=== PATIENT | female | born 1985 | race Caucasian/White ===

== ENCOUNTER 2020-02-19 11:25 | Inpatient (IN) | payer MEDICAID ==
[2020-02-19] MEDS ORDERED: hydrALAZINE 20 MG/ML VIAL SLOW IVP PRN ×3 (11:44→18:07)
[2020-02-19] MEDS ORDERED: Promethazine HCl 25 MG/ML VIAL IM PRN ×3 (11:44→15:26)
[2020-02-19] MEDS ORDERED: Ondansetron PF 4 MG/2 ML Vial IVP PRN ×4 (11:44→18:07)
[2020-02-19 11:49] VITALS: BMI 29.7
--- NOTE | 2020-02-19 12:13 | PDOC.FPROB ---
FMR OB H&P: Medications - Current Allergies/Adverse Reactions: Allergies Allergy/AdvReac Type Severity Reaction Status Date / Time hydrocodone Allergy Severe Verified 01/10/20 10:48 FMR OB H&P: Vital Signs - Maternal Vital signs: Vital Signs - First Documented Temp 98.7 F 02/19/20 11:36 FMR OB H&P: A/P - Problem List (1) Current Visit: Yes Status: Acute (2) History of - section Current Visit: No Status: Active Code(s): Z98.89 - OTHER SPECIFIED POSTPROCEDURAL STATES * DO NOT USE * Discussion: Date/Time: 02/19/20 1212 PCP: No Care HPI: This is a at unknown gestational age. Patient comes in today because she thinks she is overdue. Her last LMP was , so she thinks she needs a . With her first infant she had a primary section for Macrosomia and she plans for repeat section. Her first infant has weavers syndrome. She did not have any care because she said at first she did not have insurance, then she could not find anyone in her town who would accept her insurance. She affirms movement, denies cxns, ROM, bleeding. Denies DAVIS, visual changes, SOB, or swelling. 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, denies STIs PMH: denies dm, htn, asthma or any other significant PMH PSH: cholecystectomy, c/s x1 Meds: tylenol All: hydrocodone Soc Hx: former smoker, denies alcohol/drugs Fam Hx: no downs/congenital heart defects, 1st child with weavers syndrome REVIEW OF SYSTEMS: Gen: no fever, chills, or sweats Neuro: no numbness/tingling, no weakness, denies headache ENT: denies congestion Eyes: no visual changes Resp: denies cough, no production, no SOB, no wheeze Card: denies chest pain, no palpitations GI: denies nausea, vomiting, diarrhea : no dysuria, no hematuria Skin: no rash, no erythema Psych: denies hx anxiety/depression Vitals: T: 98.4 R: 18 BP: 123/66 P:81 at: 98% on RA PHYSICAL EXAMINATION: General: NAD, alert and oriented x3 HEENT: EOMI, normal sclera, poor dentition Neck: Supple. Full ROM. Heart/Cardiovascular System: RRR, Cap refill < 3 seconds, no rub, no murmur Lungs/Respiratory System: clear to auscultation bilaterally. No increased work of breathing. Room air. Abdomen/Gastro-Intestinal System: no abdominal tenderness, normal bowel sounds, Gravid Extremities: Warm extremities. No cyanosis or edema. Neuro: No gross deficits appreciated Psychiatry: Awake, Alert and cooperative with exam Skin: no lesions, no rashes Musculoskeletal: Full ROM A/P: This is a 34 yo here for no care evaluation FHT: 120 baseline, mod variability, no decels, accels present [place]: intermittent contractions # No care - IOB labs, GBS, A1c, UDS, full sono - Post dates by LMP - Will eval baby size and consider delivery - Discussed clinic as option for future care
[2020-02-19 12:27] LABS: Bacteria/HPF None Seen HPF (None Seen); Bilirubin Negative (Negative); Blood, Urine Negative (Negative); Clarity Clear (Clear); Glucose, Urine (Dipstick) Normal (Negative); Leukocyte Negative Leu/uL (Negative); Nitrite Negative (Negative); Protein, Urine (Dipstick) 10 mg/dL (Neg-Trace); RBC/HPF 0-3 HPF (0-3); Urobilinogen Normal mg/dL (Less than 2); WBC/HPF 0-3 HPF (0-3)
[2020-02-19 12:39] LABS: Amphetamine Not Detected (NotDetected); Cocaine Metabolite Screen Not Detected (NotDetected); Medtox Reader # READER 4; Methamphetamine Not Detected (NotDetected); Opiate Screen Not Detected (NotDetected); Phencyclidine (PCP) Not Detected (NotDetected); THC/Cannabinoid Screen Detected (NotDetected)
[2020-02-19 12:40] LABS: Barbiturates Screen Not Detected (NotDetected); Benzodiazepine Screen Not Detected (NotDetected); Medtox Control Line Valid? VALID (VALID); Methadone Not Detected (NotDetected); Oxycodone Screen Not Detected (NotDetected); Tricyclic Screen Not Detected (NotDetected)
--- NOTE | 2020-02-19 12:43 | PDOC.EVN ---
Event Note - Event Note Event Note: PREOP CS note 1241 At bedside for departmental sono, EFW at 4000grams. Severe oligo on sono (les than 2cm). Concern for late term or post-term gestation. I have discussed with charge master coordinator. We will notify anesthesia of CS later today or tomorrow AM if not possible today. If has to wait for am, needs continous monitoring. I will recommend CS today. I have discussed these findings with the patient and she agrees with plan.
[2020-02-19 12:44] LABS: Hemoglobin 10.7 g/dL (12.0-16.0); Mean Corpuscular HGB CONC 33.5 g/dL (32.0-36.0); Mean Corpuscular Hemoglobin 28.5 pg (27.0-31.0); Mean Platelet Volume 6.9 fL (7.4-10.4); Platelet Count 271 thou/uL (130-400); RBC Distribution Width 14.6 % (11.5-14.5); Red Blood Cell (RBC) Count 3.76 mill/uL (4.20-5.40); White Blood Cell (WBC) Count 9.7 thou/uL (4.8-10.8)
[2020-02-19] MEDS ORDERED: Bicitra 30 ML UDCUP PO SCH (12:45)
[2020-02-19] MEDS ORDERED: Lactated Ringer's 1,000 ML IV SCH (12:45)
[2020-02-19] MEDS ORDERED: CEFAZOLIN 2 GM in Premix Bag 1 BAG IVPB SCH (12:45)
--- NOTE | 2020-02-19 12:49 | HP ---
TIME: 2027. LOCATION: [facility], bed #6. CHIEF COMPLAINT: No care and "wants a ." HISTORY OF PRESENT ILLNESS: In brief, this is a 34-year-old, G2, P1, with no care, and no idea of her estimated due date, who arrived now for evaluation. She has good movement. She has a history of one previous for macrosomia. She desires a repeat . Her last child was born with Barton syndrome. REVIEW OF SYSTEMS: No vaginal bleeding. No leakage of fluid. Good movement. No fevers. No cough. No sick contacts. PAST SURGICAL HISTORY: Includes a . ALLERGIES: HYDROCODONE. SOCIAL HISTORY: The patient denies x3. PHYSICAL EXAMINATION: VITAL SIGNS: Stable. She is afebrile. She is normotensive. GENERAL: She is in no acute distress. CERVICAL: Currently deferred pending ultrasound for more information on the gestational age. ASSESSMENT: This is a G2, P1, with a previous with no gestational age criteria, here for evaluation. PLAN: 1. All OB labs including GC and chlamydia and GBS have been ordered. 2. We will get an OB ultrasound to give us more information as to a possible gestational age and fluid check. 3. We have also ordered a urine culture and urine tox screen per protocol. 4. We have ordered a complete ultrasound to be done. Job ID: [id number]
[2020-02-19 12:51] LABS: Hemoglobin A1c 4.9 % (4.0-6.0)
[2020-02-19 13:24] LABS: HBSAB Concentration 0.31 mIU/mL; HIV (1/2) Antibody/Antigen Non-Reactive (NonReactive); HIV 1/2 INDEX 0.12 S/CO (<1.00); Hep B Surf AB Non-Reactive (NonReactive)
[2020-02-19 13:30] LABS: Syphilis Antibody Nonreactive (Nonreactive); Syphilis Antibody Index 0.03 S/CO (<1.00 Non-Reactive)
--- NOTE | 2020-02-19 13:32 | PDOC.EVN ---
Event Note - Event Note Event Note: TOX screen pos for cannabinoids
--- NOTE | 2020-02-19 13:47 | PDOC.EVN ---
Event Note - Event Note Event Note: Hep C screen ordered per [facility]
--- NOTE | 2020-02-19 13:50 | ULT ---
LIMITED OBSTETRICAL ULTRASOUND: 02/19/20 INDICATION: Evaluate growth, position and placenta. FINDINGS: No comparisons are available. There is an intrauterine gestation in vertex presentation. Cardiac activity is noted at 130 beats per minute. The placenta is posterior and slightly fundal. The fetus is vertex in presentation. OTILIO is d iminished at 1.3 cm. The biparietal diameter measures 10.07 cm giving an estimated gestational age of 41 weeks, 3 days. The abdominal circumference measures 35.51 cm giving an estimated gestational age of 39 weeks, 3 days . The femoral length measures 7.84 cm giving an estimated gestational age of 40 weeks, 1 day. Estimated weight is 4104 grams +/- 607 grams (9 lb. 1 oz. +/- 21 oz). Average gestational age by ultrasound is 40 weeks, 3 days. Estimated due date 02/17/20. IMPRESSION: 1. Single live intrauterine gestational with size and dates as above. 2. Oligohydramnios. POS: [facility]
[2020-02-19 14:38] LABS: Hep C IgG Ab Non-Reactive (NonReactive); Hep C Index 0.08 S/CO (0-0.79)
[2020-02-19] MEDS ORDERED: MORPHINE 5 MG/10 ML PF VIAL ONE (14:57)
[2020-02-19] MEDS ORDERED: Ketorolac Tromethamine 30 MG/ML VIAL ONE (14:57)
[2020-02-19] MEDS ORDERED: Oxytocin 10 UNITS/ML VIAL ONE (14:57)
[2020-02-19] MEDS ORDERED: Ondansetron PF 4 MG/2 ML Vial ONE (14:57)
[2020-02-19] MEDS ORDERED: Promethazine HCl 25 MG SUPP PR PRN (15:26)
[2020-02-19] MEDS ORDERED: Naloxone HCl 0.4 mg/ml Vial IVP PRN ×2 (15:26)
[2020-02-19] MEDS ORDERED: diphenhydrAMINE 50 MG/ML VIAL IVP PRN (15:26)
[2020-02-19] MEDS ORDERED: Naloxone HCl 0.4 mg/ml Vial IV PRN (15:26)
[2020-02-19] MEDS ORDERED: Communication Order-Pharmacy FS SCH (15:30)
[2020-02-19 15:45] LABS: HBSAg Index 0.19 S/CO (0-0.99); Hep B Surf Ag Non-Reactive S/CO (NonReactive)
[2020-02-19 16:04] LABS: Actual Bicarbonate (HCO3a) 29.7 mEq/L (22-28); Base Excess (BEa) 0.9 mEq/L (-2.0 to +3.0)
[2020-02-19] MEDS ORDERED: Ondansetron HCl/PF 4 MG/2 ML Vial IVP PRN (16:04)
[2020-02-19 16:05] LABS: Actual Bicarbonate (HCO3v) 28 mEq/L (22-28); Base Excess -0.4 mEq/L (-2.0 to +3.0); pH (Cord, venous) 7.29 (7.32-7.43)
--- NOTE | 2020-02-19 16:06 | PDOC.EVN ---
Event Note - Event Note Event Note: OBGYN Faculty CS note: Present and participated with repeat LTCS under [place] CS. Dominick Mccray as first surgeon/ Dr Dorado assist myself as second assist and as staff attending. I assited with fundal pressure for delivery and I closed the patient's right side of fascia half. Baby male vigorous with apgars 8/9. Appears post term as skin cracking ojn feet. No mec. Sacat clear AF noted. No complications. EBL about 600ml (QBL pending) Skin sutured Please see full op note
--- NOTE | 2020-02-19 16:59 | PDOC.OPDEL ---
OB Operative/Delivery Note - Additional Findings/Plan Compilations/Other Findings: Procedure Note Date of Procedure: 02/19/20 Resident Surgeons: Chloe Mccray, David Dorado Attending Surgeon: Dr. Thomas Austin Procedure: Repeat low transverse caesarean section Preoperative Diagnosis: 1) No Care 2) Oligohydramnios 3) Term Postoperative Diagnosis: 1) Same Anesthesia: spinal Indications: 34 year old presented at 40.3 wks by 40.3 wks US for initial visit. US showed 40.3 wk infant, oligohydramnios. Patient had a prior section for macrosomia and desired repeat . Procedure in Detail: After risks, benefits, and alternatives were explained to the patient, she gave informed consent. Pre-operative antibiotics included ancef. The patient was taken to the operating room and spinal anesthesia was placed. She was placed in the supine position with a left tilt and prepped and draped in usual sterile fashion. A Pfannenstiel incision was made with a scalpel and carried down to the level of the fascia which was sharply nicked. The fascial cut was extended bilaterally with Herzog scissors. The inferior and superior edges of the cut fascial edges were elevated with Abram clamps and the underlying rectus muscles were sharply and bluntly dissected free. The recti were divided bluntly. The peritoneum was retracted manually. An Gaurang O- ring was placed. A low transverse score was made with the scalpel and the uterus was entered in the midline with the scalpel. Clear fluid was seen. The hysterotomy was extended manually. The was noted to be vertex and was easily delivered by fundal pressure. Mouth and nares were bulb suctioned. Cord clamped and cut and grossly normal male was handed to waiting nurse. Cord blood and gas was obtained. Placenta was manually extracted, found to be intact with 3 vessel cord and discarded. The uterus was externalized and the endometrium was curetted with a dry lap. The hysterotomy was closed with a running locking 0-Vicryl in the usual fashion. Small oozing was attended to with bovie, following this hemostasis was appreciated. Uterus was then internalized and the hysterotomy was again noted to be hemostatic. The rectus was evaluated for bleeders, which were attended to with bovie, following this hemostasis was noted. The fascia was closed with a running non-locking 0-PDS suture. The subcutaneous tissue was irrigated and there were bleeders were attended to with bovie. The subcutaneous layer was approximated with 3-0 chromic in a running fashion. The skin was approximated with 1-0 monocryl on a tavon needle and a pressure dressing was placed. All counts were correct. The patient tolerated the procedure well and was taken to the recovery room in stable condition. QBL: 657ml Complications: None Specimens: Cord blood sent to lab for blood type. Cord gas sent. Findings: Grossly normal male . Grossly normal placenta with 3 vessel cord discarded. Drains: Chávez to gravity draining clear urine
[2020-02-19] MEDS ORDERED: Acetaminophen 650 MG Suppository PR SCH (18:00)
[2020-02-19] MEDS ORDERED: Simethicone Chewable 80 MG TAB PO PRN (18:07)
[2020-02-19] MEDS ORDERED: Lanolin Ointment 7 GM TUBE TOP PRN (18:07)
[2020-02-19] MEDS ORDERED: Acetaminophen 325 MG TAB PO PRN (18:07)
[2020-02-19] MEDS ORDERED: Promethazine HCl 25 MG/ML VIAL ONE (18:31)
[2020-02-19] MEDS: Ketorolac Tromethamine 30 MG/ML VIAL IVP PRN (20:21)
[2020-02-19] MEDS ORDERED: NS / Oxytocin 40 units/1000ml 1,000 ML IV SCH (23:59)
[2020-02-20] MEDS: Ferrous Sulfate 325 MG TAB PO SCH ×3 (04:09→21:49)
[2020-02-20] MEDS: Docusate Calcium (SURFAK) 240 MG CAP PO SCH ×3 (04:09→21:49)
[2020-02-20] MEDS: Ketorolac Tromethamine 30 MG/ML VIAL IVP PRN ×2 (05:07→12:09)
[2020-02-20 07:00] LABS: Hemoglobin 8.4 g/dL (12.0-16.0); Mean Corpuscular HGB CONC 32.5 g/dL (32.0-36.0); Mean Corpuscular Hemoglobin 28.5 pg (27.0-31.0); Mean Corpuscular Volume 87.6 fL (78.0-98.0); Mean Platelet Volume 7.1 fL (7.4-10.4); Platelet Count 223 thou/uL (130-400); RBC Distribution Width 14.7 % (11.5-14.5); Red Blood Cell (RBC) Count 2.96 mill/uL (4.20-5.40)
[2020-02-20] MEDS: Lactated Ringer's 1,000 ML IV SCH ×3 (07:00→17:40)
--- NOTE | 2020-02-20 07:13 | PDOC.PP ---
Post Progress Note Post Day #: 1 Subjective: PP day 1. Patient states she is feeling well overall, minimal pain, well controlled with tramadol. Tolerating PO w/o N/V. States bleeding about like a heavy menses. Catheter still in place, has not tried urinating as of yet. PO intake tolerated: yes Flatus: no Ambulation: no Vital Signs (12 hours) Temp Pulse Resp BP Pulse Ox 02/20/20 04:44 98.8 F 79 18 106/53 L 98 02/20/20 00:45 98.1 F 77 18 95/52 L 97 02/19/20 21:09 98.4 F 77 18 124/60 98 02/19/20 20:01 98.4 F 75 18 105/57 L 98 Weight Weight 86.183 kg - Physical Examination General: NAD Cardiovascular: no m/r/g, RRR Respiratory: clear to auscultation bilaterally, non-labored breathing Abdominal: + bowel sounds, appropriately TTP Fundus firm & at: 1 cm below umbilicus Extremities: negative homans (B) Skin: CS incision dry & intact, no rash Neurological: no gross focal deficits Psychiatric: A&Ox3, normal affect Result Diagrams: 02/20/20 06:00 Additional Labs: Post Labs Blood Type A POSITIVE 02/19/20 12:34 Hep Bs Antigen Non-Reactive S/CO (NonReactive) 02/19/20 12:34 (1) Status: Acute (2) History of - section Code(s): Z98.89 - OTHER SPECIFIED POSTPROCEDURAL STATES * DO NOT USE * Status : Inactive (3) delivery delivered Code(s): O82 - ENCOUNTER FOR DELIVERY WITHOUT INDICATION Status: Acute (4) Poor patient attendance of care Code(s): O09.30 - SUPRVSN OF PREG W INSUFFICIENT ANTENAT CARE, UNSP TRIMESTER Status: Acute - Assessment/Plan PP day 1, delivered at 40-42 wks. - continue pain control - encouraged ambulation - hgb 8.4, asymptomatic, cont PO iron, recheck H/H in AM - advance diet this AM
--- NOTE | 2020-02-20 07:30 | PDOC.PP ---
Post Progress Note Post Day #: 1 Subjective: Doing well PO intake tolerated: yes Flatus: yes Ambulation: yes Vital Signs (12 hours) Temp Pulse Resp BP Pulse Ox 02/20/20 04:44 98.8 F 79 18 106/53 L 98 02/20/20 00:45 98.1 F 77 18 95/52 L 97 02/19/20 21:09 98.4 F 77 18 124/60 98 02/19/20 20:01 98.4 F 75 18 105/57 L 98 Weight Weight 190 lb - Physical Examination General: NAD Cardiovascular: no m/r/g Respiratory: clear to auscultation bilaterally Abdominal: + bowel sounds, lochia, no distention, appropriately TTP Extremities: negative homans (B) Neurological: no gross focal deficits Psychiatric: A&Ox3, normal affect Result Diagrams: 02/20/20 06:00 Additional Labs: Post Labs Blood Type A POSITIVE 02/19/20 12:34 Hep Bs Antigen Non-Reactive S/CO (NonReactive) 02/19/20 12:34 (1) delivery delivered Code(s): O82 - ENCOUNTER FOR DELIVERY WITHOUT INDICATION Status: Acute - Assessment/Plan POD 1...routine PP care for now. Cannabioids noted on admit urine screen. Patient stable and well this AM.
[2020-02-20] MEDS: Prenatal Vitamin 1 TAB PO SCH (08:29)
[2020-02-20] MEDS: traMADol HCl 50 MG TAB PO PRN ×2 (08:29→17:38)
[2020-02-20] MEDS ORDERED: Adacel (T-DAP) 0.5 ML SYRINGE IM ONE (09:00)
[2020-02-20] MEDS: Ibuprofen 800 MG TAB PO SCH (21:49)
[2020-02-21] MEDS: Ibuprofen 800 MG TAB PO SCH ×2 (05:46→13:49)
[2020-02-21 06:04] LABS: Hemoglobin 8.2 g/dL (12.0-16.0)
[2020-02-21] MEDS: Prenatal Vitamin 1 TAB PO SCH (07:41)
[2020-02-21] MEDS: Ferrous Sulfate 325 MG TAB PO SCH (07:41)
[2020-02-21] MEDS: Docusate Calcium (SURFAK) 240 MG CAP PO SCH (07:41)
[2020-02-21] MEDS: traMADol HCl 50 MG TAB PO PRN (07:42)
[2020-02-21] MEDS: Lactated Ringer's 1,000 ML IV SCH ×2 (07:46→10:45)
--- NOTE | 2020-02-21 08:21 | PDOC.PP ---
Post Progress Note Post Day #: 2 Subjective: Mom states she is feeling well and looking forward to going home. Pain well controlled. Tolerating PO. Has had a BM w/o difficulty. PO intake tolerated: yes Flatus: yes Ambulation: yes Vital Signs (12 hours) Temp Pulse Resp BP Pulse Ox 02/21/20 07:49 98.3 F 82 16 123/60 97 02/21/20 05:43 98.1 F 88 18 114/55 L 97 02/21/20 00:22 98.4 F 87 20 105/54 L 98 Weight Weight 86.183 kg - Physical Examination General: NAD Cardiovascular: no m/r/g, RRR Respiratory: clear to auscultation bilaterally Abdominal: + bowel sounds, appropriately TTP Extremities: negative homans (B) Skin: no rash Neurological: no gross focal deficits Psychiatric: A&Ox3, normal affect Result Diagrams: 02/21/20 05:32 Additional Labs: Post Labs Blood Type A POSITIVE 02/19/20 12:34 Hep Bs Antigen Non-Reactive S/CO (NonReactive) 02/19/20 12:34 Rubella IgG Antibody 4.05 index (Immune >0.99) 02/19/20 12:34 (1) Status: Acute (2) History of - section Code(s): Z98.89 - OTHER SPECIFIED POSTPROCEDURAL STATES * DO NOT USE * Status : Inactive (3) delivery delivered Code(s): O82 - ENCOUNTER FOR DELIVERY WITHOUT INDICATION Status: Acute (4) Poor patient attendance of care Code(s): O09.30 - SUPRVSN OF PREG W INSUFFICIENT ANTENAT CARE, UNSP TRIMESTER Status: Acute - Assessment/Plan PP day 2, delivered at 40-42 wks. - pain well controlled - hgb 8.4-> 8.2 , asymptomatic, cont PO iron - follow up at [facility] in 2 weeks
[2020-02-21 11:49] VITALS: BP 130/67; TEMP 98.4
[2020-02-21 21:47] LABS: Chlamydia by PCR Not Detected (NotDetected); GC by PCR Not Detected (NotDetected)
== END 2020-02-21 15:07 | disposition home or self-care (01) | DRG 787 ==
LOC: L&D 11:25 → 3SE 19:00
PROVIDERS: ADMIT Obstetrics & Gynecology; ATTEND Obstetrics & Gynecology
PROC: 10D00Z1 Extraction of Products of Conception, Low, Open Approach (ICD-10-PCS; principal; 2020-02-19)
DX: O34.211 Maternal care for low transverse scar from previous cesarean delivery (principal); O41.03X0 Oligohydramnios, third trimester, not applicable or unspecified; O99.324 Drug use complicating childbirth; O48.0 Post-term pregnancy; Z3A.40 40 weeks gestation of pregnancy; Z37.0 Single live birth; F12.90 Cannabis use, unspecified, uncomplicated
CPT/HCPCS: 36415; 51702; 76805; 80306; 81001; 82805; 83036; 85014; 85018; 85027; 86706; 86762; 86780; 86803; 86850; 86900; 86901; 87077; 87081; 87340; 87389; 87491; 87591; 99285; J1885; J2274; J2405; J2550; J2590